=== PATIENT | female | born 1985 | race Caucasian/White ===

== ENCOUNTER 2019-05-21 00:51 | Emergency (ER) | payer OTHER ==
[~2019-05-21] VITALS: Ht 160 cm; Wt 76.7 kg
[~2019-05-21 00:51] MED LIST: ACET325T33 PO; CEPH-443 PO; IBUP-1542 PO; METF-849 PO; ONDA4TAB14 PO
[2019-05-21 01:02] VITALS: Ht 160 cm; Wt 76.7 kg
[2019-05-21] MEDS ORDERED: KETOROLAC 30 MG INJ IV STA (01:28)
[2019-05-21] MEDS ORDERED: ONDANSETRON 4 MG INJ IV STA (01:28)
[2019-05-21] MEDS ORDERED: SOD CHLORIDE 0.9% 1,000 ML IV STA (01:28)
[2019-05-21] MEDS ORDERED: ACETAMINOPHEN 500 MG TAB PO ONE (02:57)
[2019-05-21] MEDS ORDERED: CEFTRIAXONE 1 GM/50 ML (PMX) 50 ML IVPB ONE (03:00)
[2019-05-21] MEDS ORDERED: SOD CHLORIDE 0.9% 1,000 ML IV ONE (03:00)
[2019-05-21 04:30] VITALS: BP 119/75; PULSE 95; RESP 20
--- NOTE | 2019-05-25 03:35 | ERD ---
ER Documentation Chief Complaint Chief Complaint lower back pain x 4 days. denies trauma HPI History of Present Illness: 34-year-old female who denies a past medical history coming in today due to complaint of bilateral low back pain is been present for 4 days, more present on her right side. Patient was seen in urgent care yester day and was given a prescription for Macrobid for a possible kidney infection. Patient reports 4 episodes of vomiting in the past 24 hours. History of gestational diabetes. At home pharmacological/nonpharmacological treatment for symptoms: Macrobid, Pyridium Denies social concerns; Denies recent foreign travel ROS All systems reviewed and are negative except as per history of present illness. Medications Home Meds Active Scripts Ondansetron (Ondansetron Odt) 4 Mg Tab.rapdis, 4 MG PO Q6H PRN for NAUSEA AND/OR VOMITING, #10 TAB Prov:OLGA FLORENTINO V [employer] 05/21/19 Acetaminophen* (Tylenol*) 325 Mg Tablet, 2 TAB PO Q6 PRN for PAIN AND OR ELEVATED TEMP, #30 TAB Prov:OLGA FLORENTINO NP 05/21/19 Ibuprofen* (Motrin*) 600 Mg Tab, 600 MG PO Q6H PRN for PAIN AND OR ELEVATED TEMP, #30 TAB Prov:OLGA FLORENTINO NP 05/21/19 Cephalexin* (Keflex*) 500 Mg Capsule, 500 MG PO QID for URINE INFECTION for 7 Days, CAP Prov:OLGA FLORENTINO NP 05/21/19 Metformin* (Glucophage*) 500 Mg Tab, 500 MG PO BID for ELEVATED GLUCOSE/SUGAR for 30 Days, TAB Prov:OLGA FLORENTINO NP 05/21/19 Allergies Allergies: Coded Allergies: No Known Drug Allergies (Verified Allergy, Unknown, 05/21/19) PMhx/Soc Medical and Surgical Hx: pt denies Medical Hx, pt denies Surgical Hx Hx Alcohol Use: No Hx Substance Use: No Hx Tobacco Use: No Smoking Status: Never smoker FmHx Family History: No coronary disease Physical Exam Physical Exam Const: No acute distress, mild fever Head: Atraumatic Eyes: Normal Conjunctiva ENT: Normal External Ears, Nose and Mouth. Neck: Full range of motion. No meningismus. Resp: Clear to auscultation bilaterally Cardio: Regular rate and rhythm, no murmurs Abd: Soft, non tender, non distended. No guarding, no masses, no rigidity Skin: No petechiae or rashes Back: No midline tenderness; right flank tenderness Ext: No cyanosis, or edema Neur: Awake and alert x3, speaking in clear sentences, no focal deficits or facial asymmetry Psych: Normal Mood and Affect Result Diagram: 05/21/19 0208 05/21/19 0208 Results 24 hrs Laboratory Tests Test 05/21/19 02:08 05/21/19 02:09 White Blood Count 11.8 10^3/ul Red Blood Count 5.04 10^6/ul Hemoglobin 12.9 g/dl Hematocrit 38.8 % Mean Corpuscular Volume 77.0 fl Mean Corpuscular Hemoglobin 25.6 pg Mean Corpuscular Hemoglobin Concent 33.2 g/dl Red Cell Distribution Width 13.4 % Platelet Count 283 10^3/UL Mean Platelet Volume 9.3 fl Immature Granulocytes % 0.900 % Neutrophils % 86.4 % Lymphocytes % 5.3 % Monocytes % 7.1 % Eosinophils % 0.0 % Basophils % 0.3 % Nucleated Red Blood Cells % 0.0 /100WBC Immature Granulocytes # 0.110 10^3/ul Neutrophils # 10.2 10^3/ul Lymphocytes # 0.6 10^3/ul Monocytes # 0.8 10^3/ul Eosinophils # 0.0 10^3/ul Basophils # 0.0 10^3/ul Nucleated Red Blood Cells # 0.0 10^3/ul Sodium Level 133 mmol/L Potassium Level 3.8 mmol/L Chloride Level 96 mmol/L Carbon Dioxide Level 20 mmol/L Anion Gap 17 Blood Urea Nitrogen 15 mg/dl Creatinine 0.85 mg/dl Est Glomerular Filtrat Rate mL/min > 60 mL/min Glucose Level 511 mg/dl Hemoglobin A1c 10.5 % Calcium Level 9.5 mg/dl Total Bilirubin 1.1 mg/dl Direct Bilirubin 0.00 mg/dl Indirect Bilirubin 1.1 mg/dl Aspartate Amino Transf (AST/SGOT) 19 IU/L Alanine Aminotransferase (ALT/SGPT) 24 IU/L Alkaline Phosphatase 181 IU/L Total Protein 8.2 g/dl Albumin 3.9 g/dl Globulin 4.30 g/dl Albumin/Globulin Ratio 0.90 Lipase 22 U/L Urine Color AMARI Urine Clarity CLEAR Urine pH 6.0 Urine Specific [place] 1.027 Urine Ketones 1+ mg/dL Urine Nitrite POSITIVE mg/dL Urine Bilirubin NEGATIVE mg/dL Urine Urobilinogen 2+ mg/dL Urine Leukocyte Esterase NEGATIVE Sheela/ul Urine Microscopic RBC 9 /HPF Urine Microscopic WBC 17 /HPF Urine Squamous Epithelial Cells FEW /HPF Urine Bacteria FEW /HPF Urine Hemoglobin 1+ mg/dL Urine Glucose 3+ mg/dL Urine Total Protein 2+ mg/dl Urine Test NEGATIVE Current Medications Medications Dose Sig/Frantz Start Time Status Last (Trade) Ordered Route PRN Stop Time Admin Dose Reason Admin Sodium 1,000 ml @ Q1H STAT 05/21/19 DC 05/21/19 Chloride 1,000 mls/hr IV 01:28 02:15 05/21/19 02:27 Ondansetron 4 mg ONCE STAT 05/21/19 DC 05/21/19 HCl (Zofran IV 01:28 02:14 Inj) 05/21/19 01:30 Ketorolac 30 mg ONCE STAT 05/21/19 DC 05/21/19 Tromethamine IV 01:28 02:39 (Toradol) 05/21/19 01:30 Ceftriaxone 50 ml @ ONCE ONCE 05/21/19 DC 05/21/19 Sodium 100 mls/hr IVPB 03:00 03:12 05/21/19 03:29 1,000 mg ONCE ONCE 05/21/19 DC 05/21/19 Acetaminophen PO 02:57 03:11 (Tylenol 05/21/19 02:58 Tab) Sodium 1,000 ml @ Q1H ONCE 05/21/19 DC 05/21/19 Chloride 1,000 mls/hr IV 03:00 03:12 05/21/19 03:59 Procedures/MDM ED COURSE: ED course includes a thorough examination and history. The patient was stable throughout ED course. I kept the patient and/or family informed of laboratory and diagnostic imaging results throughout the ED course. LABS: CBC: no e/o of systemic infection or severe anemia; leukocytosis of 11.8, neutrophilia 86% CMP: no e/o severe acidosis, alkalosis, renal failure, diabetic ketoacidosis, liver disease; elevated glucose at 511, mildly elevated alkaline phosphatase, lipase within normal limits, mild decrease in sodium, chloride, carbon dioxide, anion gap mildly elevated Urinalysis positive for trace ketones, positive nitrates, non-RBCs, 17 WBCs, few bacteria, 1+ hemoglobin, 3+ glucose Urine culture pending MEDICATIONS GIVEN IN ER: Ketorolac, Zofran, IV NS Patient tolerated medication well with no adverse reactions. Patient reported improvement in pain and nausea/vomiting. MEDICAL DECISION MAKING: Patient reassessment at 02 50: Vomiting no longer present. Decrease in pain. Results discussed. Orders ceftriaxone for urinary tract infection, acetaminophen for mild fever. additional fluids ordered per second bolus of NS. ED physician consultation at 0330: Spoke with Dr. SELLERS regarding history, physical, lab results. Despite patient with elevated glucose, attending physician. Patient is safe to go home and follow-up with primary care doctor. Instructed by attending physician to start patient on metformin 500 mg twice daily. Low suspicion for life-threatening medical emergency. Low suspicion for infectious process that requires hospitalization. Vomiting likely related to hyperglycemia instead of infection or acute abdominal emergency. Otherwise healthy patient presenting with constellation of symptoms likely representing urinary tract infection, hyperglycemia as characterized by history, physical exam findings, lab findings. Patient reassessment @ 0335: All test results discussed with patient. Plan of care developed for strict follow-up with primary care doctor on Saturday return precautions given per emergency dep. Patient hemodynamically stable. No respiratory distress, otherwise relatively well appearing and nontoxic. Disposition given. Patient educated on diagnoses, prescriptions, follow-up care, return precautions. Strict return precautions given for worsening condition; questions answered discharge. Patient verbalizes understanding of discharge instructions. PRESCRIPTIONS FOR HOME: Metformin, Keflex, ibuprofen, acetaminophen, Zofran DISPOSITION: DISCHARGE At this time, patient is stable for discharge and outpatient management. I have instructed the patient to follow-up with his/her primary care physician in 1-2 days. I have discussed with the patient the possibility of needing to see a specialist for further workup and imaging studies if symptoms persist. I have instructed the patient to promptly return to the ER for any new or worsening symptoms including increased pain, fever, nausea, vomiting, weakness or LOC. The patient and/or family expressed understanding of and agreement with this plan. All questions were answered. Home care instructions were provided. DISCLAIMER: Inadvertent spelling and grammatical errors are likely due to EHR/dictation software use and do not reflect on the overall quality of patient care. Also, please note that the electronic time recorded on this note does not necessarily reflect the actual time of the patient encounter. Departure Diagnosis: Primary Impression: Blood glucose elevated Additional Impression: Urinary tract infection Condition: Stable Patient Instructions: Hyperglycemia (High Blood Sugar), Urinary Tract Infections in Women Referrals: [facility] YOU HAVE RECEIVED A MEDICAL SCREENING EXAM AND THE RESULTS INDICATE THAT YOU DO NOT HAVE A CONDITION THAT REQUIRES URGENT TREATMENT IN THE EMERGENCY DEPARTMENT. FURTHER EVALUATION AND TREATMENT OF YOUR CONDITION CAN WAIT UNTIL YOU ARE SEEN IN YOUR DOCTORS OFFICE WITHIN THE NEXT 1-2 DAYS. IT IS YOUR RESPONSIBILITY TO MAKE AN APPOINTMENT FOR FOLOW-UP CARE. IF YOU HAVE A PRIMARY DOCTOR --you should call your primary doctor and schedule an appointment IF YOU DO NOT HAVE A PRIMARY DOCTOR YOU CAN CALL OUR PHYSICIAN REFERRAL HOTLINE AT IF YOU CAN NOT AFFORD TO SEE A PHYSICIAN YOU CAN CHOSE FROM THE FOLLOWING [facility] [address] [facility]. [facility] [address] [facility] [address] [facility] [address] [facility] [address] [facility]. [facility] [address] [facility] [facility] YOU HAVE RECEIVED A MEDICAL SCREENING EXAM AND THE RESULTS INDICATE THAT YOU DO NOT HAVE A CONDITION THAT REQUIRES URGENT TREATMENT IN THE EMERGENCY DEPARTMENT. FURTHER EVALUATION AND TREATMENT OF YOUR CONDITION CAN WAIT UNTIL YOU ARE SEEN IN YOUR DOCTORS OFFICE WITHIN THE NEXT 1-2 DAYS. IT IS YOUR RESPONSIBILITY TO MAKE AN APPOINTMENT FOR FOLOW-UP CARE. IF YOU HAVE A PRIMARY DOCTOR --you should call your primary doctor and schedule and appointment IF YOU DO NOT HAVE A PRIMARY DOCTOR YOU CAN CALL OUR PHYSICIAN REFERRAL HOTLINE AT . IF YOU CAN NOT AFFORD TO SEE A PHYSICIAN YOU CAN CHOSE FROM THE FOLLOWING [facility] INSTITUTIONS: [facility] [address] [place] [address] [facility] [address] [place] [address] [facility] [address] [place] [address] Additional Instructions: Thank you very much for allowing us to participate in your care. Your health and safety is our top priority at [facility]. It is important to read all discharge instructions and education provided in your discharge packet. Call your primary care doctor TOMORROW for an appointment during the next 2-4 days and bring all the information and medications prescribed. You will need a follow-up for your blood glucose and development of a treatment plan for diabetes. Have prescriptions filled and follow precisely the directions on the label. If the symptoms get worse and your provider is unavailable, return to the Emergency Department immediately. OLGA FLORENTINO NP May 25, 2019 03:35
== END 2019-05-21 04:33 | disposition home or self-care (01) ==
LOC: FTE 00:51
DX: N39.0 Urinary tract infection, site not specified (principal); R73.09 Other abnormal glucose; Z79.84 Long term (current) use of oral hypoglycemic drugs
CPT/HCPCS: 80053; 81001; 83036; 83690; 84703; 85025; 87086; J0696; J1885; J2405; J7030; Z7610; 36415; 96361; 96365; 96375